=== PATIENT | female | born 1990 | race Two or more races ===

== ENCOUNTER 2022-06-28 14:17 | Emergency (ER) | payer OTHER ==
[~2022-06-28] VITALS: Ht 160 cm; Wt 102.6 kg
[2022-06-28 15:37] VITALS: BP 134/70
[2022-06-28 16:55] LABS: Urine Bacteria FEW /hpf (None Seen); Urine Blood TRACE /uL (Negative); Urine Mucus FEW (None Seen); Urine WBC 233 /hpf (0 - 5); Urine WBC Clumps PRESENT /hpf (None Seen)
[2022-06-28] MEDS ORDERED: cefTRIAXone SOD 1,000 MG VL IM ONE (17:15)
[2022-06-28] MEDS ORDERED: ACETAMINOPHEN 500 MG TAB PO ONE (17:15)
[2022-06-28] MEDS ORDERED: ACET-1080 PO (17:25)
[2022-06-28] MEDS ORDERED: NITR-87 PO (17:25)
== END 2022-06-28 17:31 | disposition home or self-care (01) ==
LOC: ER 14:21
DX: O23.42 Unspecified infection of urinary tract in pregnancy, second trimester (principal); N39.0 Urinary tract infection, site not specified; Z79.899 Other long term (current) drug therapy; Z3A.20 20 weeks gestation of pregnancy
CPT/HCPCS: 76805; 81001; 81025; 96372; 99284; J0696